=== PATIENT | female | born 1995 | race African-American/Black ===

== ENCOUNTER 2018-01-24 05:34 | Emergency (ER) | payer OTHER ==
[~2018-01-24] VITALS: Ht 157.5 cm; Wt 68.0 kg
[~2018-01-24 05:34] MED LIST: NORCO 5-325 TA1 EACH PO; SENNA-DOCUSATE1 EACH PO; ZOFRAN ODT4 MG PO
[2018-01-24] MEDS ORDERED: BIRTH CONTROL (05:53)
[2018-01-24 06:19] LABS: HEMATOCRIT 36.1 % (37.0-47.0); MCH 23.5 pg (26.0-34.0); MCHC 33.4 g/dL (28.0-37.0); MCV 70.5 fL (80.0-100.0); PLATELET COUNT 235 thou/uL (150-400); RBC 5.11 mil/uL (4.20-5.00); RDW 22.8 % (10.5-14.5); WBC 11.8 thou/uL (4.0-11.0)
[2018-01-24 06:34] LABS: CALCIUM 8.7 mg/dL (8.5-10.1); CREATININE 0.9 mg/dL (0.6-1.0); POTASSIUM 3.3 mmol/L (3.5-5.1)
[2018-01-24 06:39] LABS: ALBUMIN 3.9 g/dL (3.4-5.0); TOTAL BILIRUBIN 2.8 mg/dL (<0.1-1.0); TOTAL PROTEIN 7.6 g/dL (6.4-8.2)
[2018-01-24] MEDS ORDERED: NORCO 5-325 TA1 EACH PO (07:29)
[2018-01-24] MEDS ORDERED: SENNA-DOCUSATE1 EACH PO (07:29)
[2018-01-24] MEDS ORDERED: ZOFRAN ODT4 MG PO (07:29)
[2018-01-24 07:40] LABS: ABSOLUTE NEUTROPHILS 7.8 thou/uL (1.4-8.2)
[2018-01-24 07:41] LABS: ANISOCYTOSIS 3+; HYPOCHROMASIA 1+; MICROCYTES 2+
[2018-01-24 07:44] LABS: TARGET CELLS FEW
[2018-01-24 07:51] VITALS: BP 107/66
== END 2018-01-24 07:40 | disposition home or self-care (01) ==
LOC: ER 05:34
PROVIDERS: Emergency Medicine
DX: K80.50 Calculus of bile duct without cholangitis or cholecystitis without obstruction (principal)